=== PATIENT | female | born 1965 | race Caucasian/White ===

== ENCOUNTER 2017-02-28 06:37 | Emergency (ER) | payer BC, OTHER ==
[2017-02-28 07:01] VITALS: TEMP 97.7; BMI 24.0
--- NOTE | 2017-02-28 07:10 | PDOC ---
History of Present Illness - General Chief Complaint: Back Pain Stated Complaint: SOB, BACK PAIN Time Seen by Provider: 02/28/17 06:56 History Source: Patient Exam Limitations: No Limitations - History of Present Illness Initial Comments: 02/28/17 07:49 51-year-old female with no medical history presents to the emergency department complaining of mid back pain 3 months. Pain is described as dull nonradiating intermittent discomfort. The pain is exacerbated on movement and alleviated minimally at rest. Patient denies chest pain, shortness of breath, abdominal pains, flank pain, headache, dizziness, lightheadedness, nausea/vomiting, fever/ chills, neck pains, extremity numbness or tingling sensation. Patient denies bladder or bowel dysfunction. Occurred: reports: other (x3 months) Pain Location: reports: back (thoracic) Method of Injury: Yes: other (working out at the gym x3 months ago) Modifying Factors: improves with: None Loss of Consciousness: no loss of consciousness Past History - Past Medical History Allergies/Adverse Reactions: Allergies Allergy/AdvReac Type Severity Reaction Status Date / Time No Known Allergies Allergy Verified 02/28/17 07:32 Home Medications: Ambulatory Orders NK [No Known Home Medication] 02/28/17 Other medical history: Denies - Immunization History Immunization Up to Date: No - Psycho/Social/Smoking Cessation Hx Anxiety: No Suicidal Ideation: No Smoking History: Never smoked Have you smoked in the past 12 months: No Information on smoking cessation initiated: No Hx Alcohol Use: No Drug/Substance Use Hx: No Substance Use Type: None Review of Systems - Review of Systems Able to Perform ROS?: Yes Comments:: 02/28/17 07:25 CONSTITUTIONAL: Absent: fever, chills, diaphoresis, generalized weakness, malaise, loss of appetite HEENT: Absent: rhinorrhea, nasal congestion, throat pain, throat swelling, difficulty swallowing, mouth swelling, ear pain, eye pain, visual Changes CARDIOVASCULAR: Absent: chest pain, loss of consciousness, palpitations, irregular heart rate, peripheral edema RESPIRATORY: Absent: cough, shortness of breath, dyspnea with exertion, orthopnea, wheezing, stridor, hemoptysis GASTROINTESTINAL: Absent: abdominal pain, abdominal distension, nausea, vomiting, diarrhea, constipation, melena, hematochezia GENITOURINARY: Absent: dysuria, frequency, urgency, hesitancy, hematuria, flank pain, genital pain MUSCULOSKELETAL: MID back pain Absent: myalgia, arthralgia, joint swelling SKIN: Absent: rash, itching, pallor HEMATOLOGIC/IMMUNOLOGIC: Absent: easy bleeding, easy bruising, lymphadenopathy, frequent infections ENDOCRINE: Absent: unexplained weight gain, unexplained weight loss, heat intolerance, cold intolerance NEUROLOGIC: Absent: headache, focal weakness or paresthesias, dizziness, unsteady gait, seizure, mental status changes, bladder or bowel incontinence PSYCHIATRIC: Absent: anxiety, depression, suicidal or homicidal ideation, hallucinations. Is the patient limited Mongolian proficient: No *Physical Exam - Vital Signs Last Vital Signs Temp Pulse Resp BP Pulse Ox 97.7 F 73 20 108/62 97 02/28/17 06:55 02/28/17 06:55 02/28/17 06:55 02/28/17 06:55 02/28/17 06:55 - Physical Exam Comments: 02/28/17 07:49 GENERAL: Well developed, well nourished. Awake and alert. No acute distress. HEENT: Normocephalic, atraumatic. PERRLA, EOMI. No conjunctival pallor. Sclera are non- icteric. Moist mucous membranes. Oropharynx is clear. NECK: Supple. Full ROM. No JVD. Carotid pulses 2+ and symmetric, without bruits. No thyromegaly. No lymphadenopathy. CARDIOVASCULAR: Regular rate and rhythm. No murmurs, rubs, or gallops. Distal pulses are 2+ and symmetric. PULMONARY: No evidence of respiratory distress. Lungs clear to auscultation bilaterally. No wheezing, rales or rhonchi. ABDOMINAL: Soft. Non-tender. Non-distended. No rebound or guarding. No organomegaly. Normoactive bowel sounds. MUSCULOSKELETAL Normal range of motion at all joints. No bony deformities or tenderness. No CVA tenderness. EXTREMITIES: No cyanosis. No clubbing. No edema. No calf tenderness. SKIN: Warm and dry. Normal capillary refill. No rashes. No jaundice. NEUROLOGICAL: Alert, awake, appropriate. Cranial nerves 2-12 intact. No deficits to light touch and temperature in face, upper extremities and lower extremities. No motor deficits in the in face, upper extremities and lower extremities. Normoreflexic in the upper and lower extremities. Normal speech. Toes are down- going bilaterally. Gait is normal without ataxia. PSYCHIATRIC: Cooperative. Good eye contact. Appropriate mood and affect. ED Treatment Course - RADIOLOGY Radiograph Interpretation: 02/28/17 07:56 Xray thoracic spine: neg Progress Note - Progress Note Progress Note: Pt adamantly refuses any pain medication *DC/Admit/Observation/Transfer Diagnosis at time of Disposition: Back strain Qualifiers: Encounter type: initial encounter Qualified Code(s): S39.012A - Strain of muscle, fascia and tendon of lower back, initial encounter - Discharge Dispostion Disposition: HOME Condition at time of disposition: Fair Admit: No - Referrals Referrals: STAFF,NOT ON [Primary Care Provider] - Igor Hensley MD [Staff Physician] - - Patient Instructions Additional Instructions: Tylenol or motrin as needed for pain Follow up with your orthopedic surgeon or the one listed on the discharge form. Return to the ER for severe/persistent/worsening symptoms, extremity numbness/ tingling sensation, bladder or bowel dysfunction
[2017-02-28 08:12] VITALS: BP 106/68; PULSE 68
== END 2017-02-28 08:12 | disposition home or self-care (01) ==
LOC: SUPCPDRO 06:37 → JER 06:37
DX: S29.012A Strain of muscle and tendon of back wall of thorax, initial encounter (principal); X50.0XXA Overexertion from strenuous movement or load, initial encounter; X50.9XXA Other and unspecified overexertion or strenuous movements or postures, initial encounter; Y93.B9 Activity, other involving muscle strengthening exercises; Y92.39 Other specified sports and athletic area as the place of occurrence of the external cause; Y99.8 Other external cause status
CPT/HCPCS: 72070-TC; 99282-25

== ENCOUNTER 2017-08-13 17:35 | Emergency (ER) | payer BC, OTHER ==
[2017-08-13 17:44] VITALS: TEMP 98; BMI 24.9
[2017-08-13 20:34] LABS: BASOPHIL 0.9 % (0-2.0); EOSINOPHIL 2.1 % (0-4.5); MCH 29.5 pg (25.7-33.7); MCHC 32.8 g/dl (32.0-36.0); MEAN CELL VOLUME 89.9 fl (80-96); MEAN PLT VOLUME 8.4 fl (7.5-11.1); NEUTROPHILS 46.7 % (42.8-82.8); PLATELET COUNT 288 K/MM3 (134-434); RDW 12.6 % (11.6-15.6); WHITE BLOOD COUNT 6.9 K/mm3 (4.0-10.0)
[2017-08-13 20:59] LABS: ALBUMIN 4.2 g/dl (3.4-5.0); ALK PHOS 110 U/L (45-117); ANION GAP 9 (8-16); BILIRUBIN,TOTAL 0.7 mg/dL (0.2-1.0); CALCIUM 8.6 mg/dL (8.5-10.1); CO2 28 mmol/L (21-32); CREATININE 0.6 mg/dL (0.55-1.02); GLUCOSE,RANDOM 94 mg/dL (74-106); SGPT/ALT 29 U/L (12-78); TOT PROT 7.6 g/dl (6.4-8.2)
[2017-08-13 21:01] LABS: TROPONIN I < 0.02 ng/ml (0.00-0.05)
[2017-08-13 21:13] LABS: CPK 144 IU/L (26-192); SGOT/AST 27 U/L (15-37)
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
[2017-08-13 22:29] VITALS: BP 120/80; PULSE 86
--- NOTE | 2017-08-15 01:29 | EKG ---
Test Reason : Blood Pressure : / mmHG Vent. Rate : 064 BPM Atrial Rate : 064 BPM P-R Int : 156 ms QRS Dur : 080 ms QT Int : 450 ms P-R-T Axes : 058 007 043 degrees QTc Int : 464 ms NORMAL SINUS RHYTHM NORMAL ECG NO PREVIOUS ECGS AVAILABLE Confirmed by ORI CULVER MD ([id number]) on 08/15/2017 1:29:36 AM Referred By: Confirmed By:ORI CULVER MD
== END 2017-08-13 22:29 | disposition home or self-care (01) ==
LOC: JER 17:35
DX: R09.89 Other specified symptoms and signs involving the circulatory and respiratory systems (principal)
CPT/HCPCS: 36415; 80053; 82550; 84484; 85025; 85379; 93005; 93010; 99282-25

== ENCOUNTER 2017-10-14 07:02 | Emergency (ER) | payer BC, OTHER ==
[2017-10-14 07:17] VITALS: BP 97/64; PULSE 80; TEMP 98.2; BMI 26.2
--- NOTE | 2017-10-14 08:02 | PDOC ---
History of Present Illness - General Chief Complaint: Pain, Acute Stated Complaint: CHEST PAIN Time Seen by Provider: 10/14/17 07:22 History Source: Patient Exam Limitations: No Limitations - History of Present Illness Initial Comments: 10/14/17 07:56 51 y/o F with no significant PMH who presents to the ED with chest pain and back pain over the past week. As per pt, last Monday (10/06/17), she developed sudden onset chest pain, radiating to the back. Her pain is a 10/10 and is pleuritic, exacerbated by movement, and a/w SOB on exertion. Pt went to her primary care physician on Monday and was dx with Flu (though she states she did not receive Flu swab testing), started on ?Z-pack. Pt's sx did not resolve after three days, so she decided to come to the ED. During this time, pt also endorses cough productive of yellow sputum (without blood) and throat pain with swallowing. Pt denies ROB, fever, chills, N/V/D, or sick contacts. 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 lives at home with her sister. denies cigarette , alcohol, or recreational drug use. Past History - Travel Traveled outside of the country in the last 30 days: No - Past Medical History Allergies/Adverse Reactions: Allergies Allergy/AdvReac Type Severity Reaction Status Date / Time No Known Allergies Allergy Verified 10/14/17 07:13 Home Medications: Ambulatory Orders Naproxen 500 mg PO BID PRN #20 tablet 10/14/17 COPD: No - Immunization History Immunization Up to Date: No - Suicide/Smoking/Psychosocial Hx Smoking History: Never smoked Have you smoked in the past 12 months: No Information on smoking cessation initiated: No Hx Alcohol Use: No Drug/Substance Use Hx: No Substance Use Type: None Review of Systems - Review of Systems Able to Perform ROS?: Yes Is the patient limited Bahraini proficient: No Respiratory: Yes: Cough Cardiac (ROS): Yes: Chest Pain Musculoskeletal: Yes: Back Pain *Physical Exam - Vital Signs Last Vital Signs Temp Pulse Resp BP Pulse Ox 98.2 F 80 18 97/64 99 10/14/17 07:13 10/14/17 07:13 10/14/17 07:13 10/14/17 07:13 10/14/17 07:37 - Physical Exam General Appearance: Yes: Appropriately Dressed HEENT: positive: EOMI, CAROLE, Pharynx Normal Neck: positive: Supple Respiratory/Chest: positive: Chest Tender (diffusely TTP), Lungs Clear, Normal Breath Sounds Cardiovascular: positive: Regular Rhythm, Regular Rate, S1, S2 Vascular Pulses: Dorsalis-Pedis (R): 2+, Doralis-Pedis (L): 2+ Gastrointestinal/Abdominal: positive: Normal Bowel Sounds, Soft Musculoskeletal: positive: Decreased Range of Motion (decreased passive, active ROM with twisting motion) Extremity: positive: Normal Range of Motion Neurologic: positive: all round butcher II-XII NML intact Heart Score/ECG Review - ECG Impressions Comment:: 10/14/17 08:23 EKG: NS with sinus arrythmia, qtc 431 ms, IL 156ms, QRS 78 ms ED Treatment Course - LABORATORY CBC & Chemistry Diagram: 10/14/17 08:20 10/14/17 08:20 Medical Decision Making - Medical Decision Making 10/14/17 08:17 51 y/o F with no significant PMH who presents to the ED with chest pain and back pain over the past week. As per pt, last Monday (10/06/17), she developed sudden onset chest pain, radiating to the back. Her pain is a 10/10 and is pleuritic, exacerbated by movement, and a/w SOB on exertion. Pt currently afebrile, non septic. Possible differentials include: influenza, PNA (will get CXR to r/o infiltrates. Pt with pleuritic pain and productive cough, however afebrile. Will also check CBC for white count). Other differentials include costochondritis as pt with diffuse ttp on anterior chest wall. Will order the following CBC with diff- to check for leukocytosis BMP Troponin - as pt with chest pain, though likely non-cardiac. to r/o CXR - r/o infiltrates IV NS for adequate hydration Will also give ibuprofen 600mg PO x 1 10/14/17 08:43 Will give duoneb x 1 to help relieve chest tightness, toradol 60mg IM x 1 for pain control likely costochondritis, however will wait for labs, CXR 10/14/17 08:46 10/14/17 10:38 Labs have returned, WNL. CXR WNL. Will d/c pt on naproxen 500 BID for costochondritis, possible viral syndrome. *DC/Admit/Observation/Transfer Diagnosis at time of Disposition: Viral respiratory illness, Costochondritis - Discharge Dispostion Disposition: HOME Condition at time of disposition: Stable Admit: No - Prescriptions Prescriptions: Naproxen 500 mg PO BID PRN #20 tablet PRN Reason: Pain - Referrals Referrals: Marilyn Manrique MD [Primary Care Provider] - - Patient Instructions Additional Instructions: You were recently in the hospital because you had a respiratory viral illness and costochondritis. While you were in the emergency room, we checked your blood work, EKG, and chest X-ray which were within normal limits. Costochondritis can cause inflammation of parts of your rib cage; where they connect to the breastbone. The cause is usually unknown, but it can result from increased activity or respiratory viral illness. Your coughing may have also strained your chest muscles. We sent a prescription for Naproxen to your pharmacy ([facility] in the [place]). Please take one pill twice a day when you have pain. We recommend that you follow up with your primary care doctor in one week. Hope you feel better soon. - Post Discharge Activity
[2017-10-14] MEDS ORDERED: IBUPROFEN 600 MG TABLET (FP) PO ONE ×2 (08:06→08:24)
[2017-10-14] MEDS ORDERED: SODIUM CHLORIDE 1,000 ML IV SCH (08:15)
[2017-10-14] MEDS ORDERED: KETOROLAC TROMETHAMINE 30 MG/1 ML VIAL IVPUSH ONE (08:41)
[2017-10-14] MEDS ORDERED: ALBUTEROL SO4 2.5/IPRATROPIUM 0.5 INH SOL 3 ML VIAL.NEB. NEB ONE ×2 (08:42→08:54)
[2017-10-14] MEDS ORDERED: KETOROLAC TROMETHAMINE 60 MG/2 ML VIAL IM ONE (08:46)
[2017-10-14] MEDS ORDERED: KETOROLAC TROMETHAMINE 60 MG/2 ML VIAL ONE (08:53)
[2017-10-14 08:54] LABS: BASO % 0.5 % (0-2.0); EOS % 2.2 % (0-4.5); HEMOGLOBIN 13.4 GM/dL (10.7-15.3); LYMPH % 52.1 % (8-40); MCHC 32.7 g/dl (32.0-36.0); MEAN CELL VOLUME 88.9 fl (80-96); MONO % 8.9 % (3.8-10.2); NEUT % 36.3 % (42.8-82.8); PLATELET COUNT 251 K/MM3 (134-434); RBC 4.61 M/mm3 (3.60-5.2); RDW 12.8 % (11.6-15.6); WHITE BLOOD COUNT 3.9 K/mm3 (4.0-10.0)
[2017-10-14 09:09] LABS: ANION GAP 6 (8-16); BLOOD UREA NITROGEN 8 mg/dL (7-18); CHLORIDE 106 mmol/L (98-107); CO2 29 mmol/L (21-32); CREATININE 0.6 mg/dL (0.55-1.02); GLUCOSE,RANDOM 93 mg/dL (74-106); POTASSIUM 3.7 mmol/L (3.5-5.1); SODIUM 141 mmol/L (136-145)
--- NOTE | 2017-10-14 09:46 | PDOC ---
Attending Attestation - Resident Resident Name: Estefania Lima - ED Attending Attestation I have performed the following: I have examined & evaluated the patient, The case was reviewed & discussed with the resident, I agree w/resident's findings & plan, Exceptions are as noted - HPI HPI: 10/14/17 09:42 51-year-old female with past medical history of hyperlipidemia presents with 3 days of reproducible chest pain, nonproductive cough and body aches. The patient had seen her primary care physician who had initiated empiric azithromycin. She is currently on day 3 reports no improvement of symptoms. Denies fevers or chills. States that when she coughs she has developed some chest discomfort. She denies difficulty breathing. Denies sick contacts or recent travels. - Physicial Exam PE: 10/14/17 09:44 GENERAL: Awake, alert, and fully oriented, in no acute distress. HEAD: No signs of trauma EYES: PERRLA, EOMI, sclera anicteric, conjunctiva clear ENT: Auricles normal inspection, hearing grossly normal, nares patent NECK: Normal ROM, supple, no lymphadenopathy, JVD, or masses LUNGS: Breath sounds equal, clear to auscultation bilaterally. No wheezes, and no crackles HEART: Regular rate and rhythm, normal S1 and S2, no murmurs, rubs or gallops ABDOMEN: Soft, nontender, normoactive bowel sounds. No guarding, no rebound. No masses EXTREMITIES: Normal range of motion, no edema. No clubbing or cyanosis. No cords, erythema, or tenderness NEUROLOGICAL: Cranial nerves II through XII grossly intact. Normal speech SKIN: Warm, Dry, normal turgor, no rashes or lesions noted. - Medical Decision Making 10/14/17 09:45 Vital Signs Temp Pulse Resp BP Pulse Ox 98.2 F 80 18 97/64 99 10/14/17 07:13 10/14/17 07:13 10/14/17 07:13 10/14/17 07:13 10/14/17 07:37 51-year-old female presents with reproducible pain, cough. The chest pain is likely to be costochondritis. NSAIDs and supportive care. This is likely secondary to her upper respiratory infection. We'll rule out pneumonia though viral syndrome is within the differential. The patient is overall well- appearing and nontoxic. Chest x-ray, labs and reassess. If workup is unremarkable and the patient feels better, the patient can be discharged with follow-up with primary care physician. At this time, the patient is outside the window for Tamiflu. We also do not have the antigen for influenza testing. 10/14/17 10:29 CBC, BMP 10/14/17 08:20 10/14/17 08:20 CMP Sodium 141 mmol/L (136-145) 10/14/17 08:20 Potassium 3.7 mmol/L (3.5-5.1) 10/14/17 08:20 Chloride 106 mmol/L (98-107) 10/14/17 08:20 Carbon Dioxide 29 mmol/L (21-32) 10/14/17 08:20 Anion Gap 6 (8-16) L 10/14/17 08:20 BUN 8 mg/dL (7-18) 10/14/17 08:20 Creatinine 0.6 mg/dL (0.55-1.02) 10/14/17 08:20 Random Glucose 93 mg/dL (74-106) 10/14/17 08:20 Calcium 8.0 mg/dL (8.5-10.1) L 10/14/17 08:20 Serum , Qual Negative 10/14/17 08:20 Chest xray negative. Labs unremarkable. The patient reports some relief. I suspect costochondritis. Pt instructed to continue to take her azithromycin. NSAIDS. Return precautions given. Heart Score/ECG Review #1 ECG reviewed & interpreted by me at: 07:25 10/14/17 09:46 NSR 73, Q wave V1, III, no std/leydi, normal axis, normal intervals, QTC 431 msec
--- NOTE | 2017-10-15 11:10 | EKG ---
Test Reason : Blood Pressure : / mmHG Vent. Rate : 073 BPM Atrial Rate : 073 BPM P-R Int : 156 ms QRS Dur : 078 ms QT Int : 392 ms P-R-T Axes : 042 009 030 degrees QTc Int : 431 ms NORMAL SINUS RHYTHM WITH SINUS ARRHYTHMIA SEPTAL INFARCT , AGE UNDETERMINED ABNORMAL ECG WHEN COMPARED WITH ECG OF 13-AUG-2017 21:00, SEPTAL INFARCT IS NOW PRESENT Confirmed by DAVIS CONTRERAS, MARISELA ([id number]) on 10/15/2017 11:10:19 AM Referred By: Confirmed By:MARISELA CANNON MD
== END 2017-10-14 11:10 | disposition home or self-care (01) ==
LOC: JER 07:02
PROC: 3E0233Z Introduction of Anti-inflammatory into Muscle, Percutaneous Approach (ICD-10-PCS; principal; 2017-10-14)
PROC: 3E0F7GC Introduction of Other Therapeutic Substance into Respiratory Tract, Via Natural or Artificial Opening (ICD-10-PCS; 2017-10-14)
DX: M94.0 Chondrocostal junction syndrome [Tietze] (principal); B34.9 Viral infection, unspecified
CPT/HCPCS: 36415; 71045-TC-FY; 80048; 84484; 84703; 85025; 93005; 93010; 99284-25

== ENCOUNTER 2019-06-16 18:07 | Emergency (ER) | payer BC, OTHER ==
[2019-06-16 18:14] VITALS: TEMP 97.9; BMI 26.5
[2019-06-16] MEDS ORDERED: ALBUTEROL SO4 2.5/IPRATROPIUM 0.5 INH SOL 3 ML VIAL.NEB. NEB ONE (19:14)
[2019-06-16] MEDS ORDERED: IPRATROPIUM BR 0.02% 0.5 MG/2.5 ML VIAL.NEB. NEB ONE (19:19)
[2019-06-16] MEDS ORDERED: ALBUTEROL SO4 0.083% IH SOL 2.5 MG/3 ML VIAL.NEB. NEB ONE (19:19)
[2019-06-16 20:09] VITALS: BP 115/76; PULSE 88
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
--- NOTE | 2019-06-17 15:55 | EKG ---
Test Reason : Blood Pressure : / mmHG Vent. Rate : 082 BPM Atrial Rate : 082 BPM P-R Int : 160 ms QRS Dur : 088 ms QT Int : 412 ms P-R-T Axes : 051 011 040 degrees QTc Int : 481 ms NORMAL SINUS RHYTHM PROLONGED QT ABNORMAL ECG WHEN COMPARED WITH ECG OF 14-OCT-2017 07:23, NO SIGNIFICANT CHANGE WAS FOUND Confirmed by ORI CULVER MD ([id number]) on 06/17/2019 3:55:06 PM Referred By: Confirmed By:ORI CULVER MD
== END 2019-06-16 22:53 | disposition home or self-care (01) ==
LOC: JERFT 18:07 → JER 18:07
PROC: 3E0F7GC Introduction of Other Therapeutic Substance into Respiratory Tract, Via Natural or Artificial Opening (ICD-10-PCS; principal; 2019-06-16)
DX: T54.3X1A Toxic effect of corrosive alkalis and alkali-like substances, accidental (unintentional), initial encounter (principal); R06.02 Shortness of breath; Y92.038 Other place in apartment as the place of occurrence of the external cause
CPT/HCPCS: 71046-TC-FY; 93005; 93010; 99282-25